=== PATIENT | male | born 1965 | race Caucasian/White ===

== ENCOUNTER 2023-01-02 19:00 | Emergency (ER) | payer OTHER ==
[~2023-01-02] VITALS: Ht 170.2 cm; Wt 39.5 kg
[2023-01-02] MEDS ORDERED: CLOT10 (19:59)
[2023-01-02] MEDS ORDERED: VITAMIN D5000 UNIT (19:59)
[2023-01-02] MEDS ORDERED: ETHA400 (19:59)
[2023-01-02] MEDS ORDERED: TIVICAY50 MG (19:59)
[2023-01-02] MEDS ORDERED: EMTRICITABINE-1 EAC5 (19:59)
[2023-01-02] MEDS ORDERED: ISONIAZID (20:00)
[2023-01-02] MEDS ORDERED: LORA.5 (20:00)
[2023-01-02] MEDS ORDERED: HYDROXYZINE PAM25 MG (20:00)
[2023-01-02] MEDS ORDERED: PYRA500 (20:01)
[2023-01-02] MEDS ORDERED: OXYC5 (20:01)
[2023-01-02] MEDS ORDERED: MULVITA (20:01)
[2023-01-02] MEDS ORDERED: PYRI100 (20:01)
[2023-01-02] MEDS ORDERED: SULTRIDS (20:02)
[2023-01-02] MEDS ORDERED: RIFA300 (20:02)
[2023-01-02] MEDS ORDERED: ACET325 (20:02)
[2023-01-02] MEDS ORDERED: BISA10S (20:02)
[2023-01-02] MEDS ORDERED: DOCU100 (20:02)
[2023-01-02] MEDS ORDERED: MIRALAX17 GM (20:03)
[2023-01-02] MEDS ORDERED: METO5A (20:03)
[2023-01-02] MEDS ORDERED: FAMO20 (20:03)
[2023-01-02] MEDS ORDERED: GABA100 (20:03)
[2023-01-02] MEDS ORDERED: B-1100 M1 (20:03)
[2023-01-02 21:22] LABS: BASOPHILS PERCENT AUTO 0 % (0-2); EOSINOPHILS ABSOLUTE AUTO 0.03 K/mm3 (0.00-0.68); EOSINOPHILS PERCENT AUTO 1 % (0-6); Hemoglobin 8.7 g/dL (13.5-17.5); IMMATURE GRAN ABSOLUTE AUTO 0.02 K/mm3 (0.00-0.10); IMMATURE GRAN PERCENT AUTO 0 % (0-1); LYMPHOCYTES ABSOLUTE AUTO 0.93 K/mm3 (0.84-5.20); LYMPHOCYTES PERCENT AUTO 17 % (21-46); MONOCYTES ABSOLUTE AUTO 0.39 K/mm3 (0.16-1.47); MONOCYTES PERCENT AUTO 7 % (4-13); Mean Corpuscular HGB 24.9 pg (26.0-34.0); Mean Corpuscular HGB Conc 32.2 g/dL (31.5-36.5); Mean Corpuscular Volume 77 fL (80-100); Mean Platelet Volume 9.3 fL (9.1-12.4); NEUTROPHILS PERCENT AUTO 75 % (41-73); Platelet Count 348 K/mm3 (150-400); RDW Coefficient Variation 21.1 % (11.7-14.2); RDW Standard Deviation 56.5 fL (35.1-46.3); Red Blood Cell Count 3.49 M/mm3 (4.30-5.90); White Blood Cell Count 5.47 K/mm3 (4.00-11.30)
[2023-01-02 21:34] LABS: Albumin, Blood 1.7 g/dL (3.4-5.0); Albumin/Globulin Ratio 0.4 (0.8-1.8); Bilirubin, Total 0.3 mg/dL (0.1-1.0); Bun/Creatinine Ratio 26.1 (12.0-20.0); Calcium, Blood 7.1 mg/dL (8.5-10.1); Creatinine, Blood 0.54 mg/dL (0.60-1.20); Globulin, Blood 4.3 g/dL (2.2-4.0); Potassium, Blood 3.5 mmol/L (3.5-5.5)
[2023-01-03 16:07] LABS: Influenza A, PCR NEGATIVE (NEGATIVE); Influenza B, PCR NEGATIVE (NEGATIVE); Resp Syncytial Virus, PCR NEGATIVE (NEGATIVE); SARS-Cov-2 (COVID-19) PCR, MMC NEGATIVE (NEGATIVE)
[2023-01-04 19:30] VITALS: BP 104/78
== END 2023-01-04 19:30 | disposition home or self-care (01) ==
LOC: ER 19:00
PROVIDERS: Emergency Medicine
DX: A15.9 Respiratory tuberculosis unspecified (principal); J44.9 Chronic obstructive pulmonary disease, unspecified; D64.9 Anemia, unspecified; B20 Human immunodeficiency virus [HIV] disease
CPT/HCPCS: 0241U; 71045; 80053; 85025; 97161; 97530; 99285-25; A9270